=== PATIENT | male | born 1940 | race Caucasian/White ===

== ENCOUNTER 2020-07-05 07:52 | Outpatient (CLI) | payer MEDICARE, OTHER, SELFPAY ==
--- NOTE | 2020-07-05 13:04 | P.PCNPFT_ITS ---
PFT Interpretation This is a pulmonary function test with spirometry, plethysmography and diffusing capacity. The test was performed and results interpreted in accordance with the 2019 and 2005 ATS/ERS Task Force guidelines respectively using the Global Lung Function Initiative-2012 reference equations. Patient demonstrated good effort and cooperation but had difficulty achieving reproducible spirometry. The quality of the pre bronchodilator spirometry maneuver was Grade C. Findings: Spirometry:The contour of the inspiratory and expiratory flow tracing are normal . The FVC is 3.48 L, 85% predicted. The FEV1 is 2.44 L, 80% predicted. The FEV1: FVC ratio 70%. Plethysmography: The total lung capacity is 5.30 L, 73% predicted. Functional residual capacity is 2.30 L, 59% predicted. the residual volume is 1.82 L, 69% predicted. Diffusing capacity: The absolute diffusion capacity is 15.9, 64% predicted. The diffusing capacity corrected for alveolar volume is 3.55, 97% predicted. Impression: The interpretation is compromised by an inability of the patient to hold full exhalation. There is a mild restrictive ventilatory abnormality with a normal FEV1. The spirometry is normal without evidence of an obstructive abnormality. The absolute diffusing capacity is mildly decreased and normalizes when corrected for alveolar volume. There are no prior studies for comparison PFT Procedure Performed PFT Procedure Performed Plethysmography (Lung Vol) Diffusing Cap (DLCO) Spirometry w/o Bronchodil
== END 2020-07-05 07:53 | disposition home or self-care (01) ==
LOC: ANHPFT 07:56
PROVIDERS: PCP Internal Medicine; Visit Provider Internal Medicine
DX: R06.00 Dyspnea, unspecified (principal); R94.2 Abnormal results of pulmonary function studies
CPT/HCPCS: 94375; 94726; 94729